=== PATIENT | male | born 1990 | race Caucasian/White ===

== ENCOUNTER 2019-03-31 14:28 | Outpatient (CLI) | payer BC ==
[2019-03-31] MEDS ORDERED: IOVERSOL 320 100 ML VIAL IVP ONE ×2 (14:35→16:56)
[2019-03-31] MEDS ORDERED: IOVERSOL 320 50 ML VIAL ONE (14:35)
--- NOTE | 2019-03-31 16:45 | CT Report ---
Reason: TESTICULAR CA Procedure Date: 03/31/2019 Accession Number: [id number] / [id number] Procedure: CT - Abdomen/Pelvis W CPT Code: FULL RESULT: EXAM: CT ABDOMEN AND PELVIS EXAM DATE: 03/31/2019 03:39 PM. CLINICAL HISTORY: Testicular cancer restaging COMPARISONS: ABDOMEN/PELVIS W/ 04/16/2018 10:03 AM. TECHNIQUE: Routine helical CT imaging was performed through the abdomen and pelvis. IV contrast: . Enteric contrast: No. Reconstructions: Coronal and sagittal. In accordance with CT protocol optimization, one or more of the following dose reduction techniques were utilized for this exam: automated exposure control, adjustment of mA and/or KV based on patient size, or use of iterative reconstructive technique. FINDINGS: Lung Bases: Unremarkable. Liver: Normal. No masses. Gallbladder/Bile Ducts: No biliary dilatation. The gallbladder is decompressed. Spleen: Normal. Pancreas: Normal. Adrenal Glands: Normal. Kidneys: Redemonstration of horseshoe kidney. No evidence of hydroureteronephrosis. Peritoneal Cavity/Bowel: Normal. No free fluid, free air or adenopathy. No masses or acute inflammatory process. The appendix is well visualized and normal. Pelvic Organs: Normal. The bladder and visualized pelvic organs are within normal limits. Vasculature: No aneurysms or other significant abnormality. Bones: No significant abnormality. Other: No evidence of pelvic or abdominal retroperitoneal adenopathy. IMPRESSION: 1. No evidence of metastatic testicular cancer in the field of view. 2. 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 RADIA
[2019-03-31] MEDS ORDERED: IOVERSOL 320 50 ML VIAL PO ONE (16:56)
== END 2019-03-31 14:29 | disposition home or self-care (01) ==
LOC: DI 14:28
PROVIDERS: ATTEND Nurse Practitioner Adult Health
DX: C62.90 Malignant neoplasm of unspecified testis, unspecified whether descended or undescended (principal); Q63.1 Lobulated, fused and horseshoe kidney
CPT/HCPCS: 74177; Q9967; 80053; 83615; 85027

== ENCOUNTER 2020-01-01 12:57 | Outpatient (CLI) | payer SELFPAY ==
[2020-01-01 17:18] LABS: BASOPHILS % (AUTO) 0.5 %; EOSINOPHILS # (AUTO) 0.3 10^3/uL (0.0-0.7); EOSINOPHILS % (AUTO) 4.3 %; HGB - HEMOGLOBIN 15.1 g/dL (14.0-18.0); LYMPHOCYTES # (AUTO) 1.4 10^3/uL (1.5-3.5); LYMPHOCYTES % (AUTO) 23.5 %; MEAN CORPUSCULAR HEMOGLOBIN 30.2 pg (27.0-31.0); MEAN CORPUSCULAR HGB CONC 32.3 g/dL (32.0-36.0); MEAN CORPUSCULAR VOLUME 93.4 fL (80.0-94.0); MEAN PLATELET VOLUME 12.9 fL (7.4-11.4); MONOCYTES # (AUTO) 0.4 10^3/uL (0.0-1.0); NEUTROPHILS # (AUTO) 3.8 10^3/uL (1.5-6.6); NEUTROPHILS % (AUTO) 64.2 %; PLT - PLATELET COUNT 145 10^3/uL (130-450); RED CELL DISTRIBUTION WIDTH 12.7 % (12.0-15.0); WHITE BLOOD COUNT 5.9 x10^3/uL (4.8-10.8)
[2020-01-01 17:40] LABS: ALBUMIN 4.5 g/dL (3.2-5.5); ALBUMIN/GLOBULIN RATIO 1.8 (1.0-2.2); BILIRUBIN,TOTAL 0.4 mg/dL (0.2-1.0)
== END 2020-01-01 12:58 | disposition home or self-care (01) ==
LOC: LAB.S 12:57
PROVIDERS: ATTEND Physician Assistant Medical
DX: C62.91 Malignant neoplasm of right testis, unspecified whether descended or undescended (principal)
CPT/HCPCS: 36415; 80053; 85025

== ENCOUNTER 2020-12-26 10:50 | Outpatient (CLI) | payer BC ==
[2020-12-26] MEDS ORDERED: IOPAMIDOL-300 50 ML VIAL ONE (11:09)
[2020-12-26] MEDS ORDERED: IOVERSOL 320 100 ML VIAL IVP ONE (11:09)
--- NOTE | 2020-12-26 13:27 | CT Report ---
PROCEDURE: Abdomen/Pelvis W INDICATIONS: RT TESTICULAR CA CONTRAST: IV CONTRAST: Optiray 320 ml: 100 PO CONTRAST: Isovue 300 ml50 TECHNIQUE: After the administration of IV and oral contrast, 5 mm thick sections acquired from the diaphragms to the symphysis. 5 mm thick coronal and sagittal reformats were acquired. For radiation dose reducti on, the following was used: automated exposure control, adjustment of mA and/or kV according to christina ent size. COMPARISON: 03/31/2019. FINDINGS: Image quality: Excellent. ABDOMEN: Lung bases: Lung bases are clear. Heart size is normal. Solid organs: Liver and spleen are normal in size and enhancement. Gallbladder negative. Biliary s ystem is non dilated. Pancreas enhances normally. No adrenal nodules. Incidentally noted horseshoe kidney No ureteral dilatation identified Peritoneum and bowel: There is questionable duodenal wall thickening, however no definite adjacent in flammatory stranding is seen. No free fluid or air. Nodes and vessels: No retroperitoneal or mesenteric adenopathy by size criteria. Aorta and inferior vena cava are normal in size. Tiny periumbilical fat-containing hernia. PELVIS: Circumferential mural thickening of the bladder wall. This finding technically age indeterminate. Jayden endix Miscellaneous: No inguinal hernias or adenopathy. Bones: No suspicious bony lesions. No vertebral body compression fractures. IMPRESSION: No specific evidence of distant metastatic disease. Nonspecific mild cervical vertebral mural thickening the bladder, which is slightly more conspicuous since the prior study although technically indeterminate clinical significance. Please relate clinica lly with urinalysis data. Possible duodenal wall thickening raising possibility of low-grade inflammatory or infectious duodeni tis, however no other adjacent inflammatory changes. Please correlate to clinical exam findings. Additional chronic and incidental findings as above. Reviewed by: Berhane Mercer MD on 12/26/2020 1:26 PM PST Approved by: Berhane Mercer MD on 12/26/2020 1:26 PM PST Station ID: [id number]
== END 2020-12-26 10:51 | disposition home or self-care (01) ==
LOC: DI 10:50
PROVIDERS: ATTEND Physician Assistant
DX: R93.41 Abnormal radiologic findings on diagnostic imaging of renal pelvis, ureter, or bladder (principal); R93.3 Abnormal findings on diagnostic imaging of other parts of digestive tract; C62.91 Malignant neoplasm of right testis, unspecified whether descended or undescended
CPT/HCPCS: 36415; 74177; 80048; Q9967

== ENCOUNTER 2020-12-26 10:56 | Outpatient (CLI) | payer BC ==
[2020-12-26 11:26] LABS: CALCIUM 9.8 mg/dL (8.5-10.3); CREATININE 0.8 mg/dL (0.6-1.2); POTASSIUM 3.8 mmol/L (3.5-5.0)
== END 2020-12-26 10:57 | disposition home or self-care (01) ==
LOC: LAB 10:56
PROVIDERS: ATTEND Physician Assistant
DX: C62.91 Malignant neoplasm of right testis, unspecified whether descended or undescended (principal)
CPT/HCPCS: 36415; 80048

== ENCOUNTER 2021-06-08 08:00 | Outpatient (CLI) | payer BC ==
[2021-06-08 20:21] LABS: BILIRUBIN,URINE NEGATIVE (NEGATIVE); GLUCOSE, URINE (UA) NEGATIVE (NEGATIVE); KETONES,URINE (UA) NEGATIVE (NEGATIVE); LEUKOCYTE ESTERASE, URINE TRACE (NEGATIVE); NITRITE,URINE NEGATIVE (NEGATIVE); OCCULT BLOOD,URINE TRACE-LYSE (NEGATIVE); PH,URINE 6.5 PH (5.0-7.5); PROTEIN,URINE NEGATIVE (NEGATIVE); UROBILINOGEN,URINE 0.2 (NORMAL) E.U./dL (NORMAL)
[2021-06-08 20:27] LABS: BACTERIA,URINE Rare /HPF (None Seen); CLARITY,URINE CLEAR (CLEAR); RBC,URINE 0-5 /HPF (0-5); SQUAMOUS EPITHELIAL CELL,UR RARE Squamous (<= Few); WBC,URINE 0-3 /HPF (0-3)
== END 2021-06-08 23:59 | disposition home or self-care (01) ==
LOC: LAB.S 08:00
PROVIDERS: ATTEND Physician Assistant Medical
DX: R30.0 Dysuria (principal)
CPT/HCPCS: 81001; 87077; 87086; 87181